=== PATIENT | male | born 1935 | race Caucasian/White ===

== ENCOUNTER 2021-04-05 16:58 | Inpatient (IN) ==
[2021-04-05] MEDS: Furosemide 20 MG TABLET PO SCH (22:51)
[2021-04-05] MEDS: carvediloL 6.25 MG TABLET PO SCH (22:51)
[2021-04-05] MEDS: Spironolactone 25 MG TABLET PO SCH (22:51)
[2021-04-06] MEDS: Spironolactone 25 MG TABLET PO SCH ×2 (07:56→20:20)
[2021-04-06] MEDS: carvediloL 6.25 MG TABLET PO SCH ×2 (07:56→16:10)
[2021-04-06] MEDS: Furosemide 20 MG TABLET PO SCH ×2 (07:56→16:10)
[2021-04-06] MEDS: allopurinoL 300 MG TABLET PO SCH (08:01)
[2021-04-06] MEDS ORDERED: Aspirin Enteric Coated 81 MG Tablet PO SCH (09:00)
[2021-04-06] MEDS: *HR* HYDROcodone/Acet 5/325 mg TABLET PO PRN ×3 (09:18→22:15)
[2021-04-06] MEDS ORDERED: polyethylene glycoL 3350 17 GM POWD.PACK PO PRN (16:09)
[2021-04-07] MEDS: carvediloL 6.25 MG TABLET PO SCH ×2 (07:21→16:19)
[2021-04-07] MEDS: Furosemide 20 MG TABLET PO SCH ×2 (07:21→16:19)
[2021-04-07] MEDS: Spironolactone 25 MG TABLET PO SCH ×2 (07:22→20:22)
[2021-04-07] MEDS: allopurinoL 300 MG TABLET PO SCH (07:22)
[2021-04-07] MEDS: *HR* HYDROcodone/Acet 5/325 mg TABLET PO PRN (07:22)
[2021-04-07] MEDS: Aspirin Enteric Coated 325 MG Tablet PO SCH (11:06)
[2021-04-08 06:43] VITALS: TEMP 97.7
[2021-04-08 07:37] LABS: Basophils % 0.1 %; Eosinophils # 0.2 K/mcL (0.0-0.6); Eosinophils % 1.4 %; Hematocrit 29.7 % (37.5-50.1); Hemoglobin 9.8 g/dL (12.9-16.9); Immature Granulocytes % 0.7 % (0-4); Lymphocytes # 1.5 K/mcL (0.6-4.6); Mean Corpuscular Hemoglobin 32.3 pg (28.0-33.3); Mean Platelet Volume 10.9 fL (9.4-12.4); Monocytes % 7.1 %; Neutrophils # 11.1 K/mcL (1.6-8.9); Platelet Count 306 K/mcL (140-400); Red Blood Count 3.03 M/mcL (4.19-5.50); Red Cell Distribution Width 13.6 % (11.5-14.5); Segmented Neutrophils % 79.7 %; White Blood Count 13.9 K/mcL (4.3-11.1)
[2021-04-08 07:50] LABS: Calcium 8.4 mg/dL (8.6-10.3); Potassium 4.2 mEq/L (3.5-5.1)
[2021-04-08] MEDS: Furosemide 20 MG TABLET PO SCH (10:44)
[2021-04-08] MEDS: allopurinoL 300 MG TABLET PO SCH (10:44)
[2021-04-08] MEDS: carvediloL 6.25 MG TABLET PO SCH (10:45)
[2021-04-08] MEDS: Aspirin Enteric Coated 325 MG Tablet PO SCH (10:45)
[2021-04-08] MEDS: Spironolactone 25 MG TABLET PO SCH (10:45)
[2021-04-08 10:59] LABS: Bilirubin,Urine Negative (Negative); Blood,Urine Moderate (Negative); Clarity,Urine Clear (Clear); Color,Urine Yellow (Yellow); Glucose,Urine (UA) Normal (Normal); Ketones,Urine Negative (Negative); Leukocyte Esterase,Urine Negative (Negative); Nitrite,Urine Negative (Negative); PH,Urine 5.5 pH Units (5.0-8.0); Protein,Urine Negative (Neg-Trace); Specific Gravity,Urine 1.015 (1.010-1.025); Urobilinogen,Urine Normal (Normal)
[2021-04-08 11:25] LABS: Amorphous Sediment,Urine Few per hpf (None-Few); Hyaline Casts,Urine Few per lpf (None Seen)
[2021-04-08] MEDS ORDERED: 0.9 % Sodium Chloride 1,000 ML IVC SCH (13:30)
[2021-04-08] MEDS ORDERED: 0.9 % Sodium Chloride 500 ML IVC ONE (14:39)
[2021-04-08] MEDS ORDERED: Albumin 25% 25gram/100mL 25 GM/100 ML IV.SOLN IVPB ONE (15:52)
[2021-04-08 16:22] VITALS: BP 125/68; PULSE 95; RESP 20; O2SAT 95
[2021-04-11] MEDS ORDERED: allopurinoL 100 MG TABLET PO SCH (09:00)
== END 2021-04-08 17:00 | disposition short-term general hospital (02) | DRG 64 ==
LOC: INPPIK 22:28
PROVIDERS: ADMIT Family Medicine; ATTEND Family Medicine

== ENCOUNTER 2021-04-12 17:16 | Inpatient (IN) ==
[2021-04-12] MEDS ORDERED: *HR* HYDROcodone/Acet 5/325 mg TABLET PO PRN (17:32)
[2021-04-12] MEDS: carvediloL 6.25 MG TABLET PO SCH (22:24)
[2021-04-12] MEDS: Cefdinir 300 MG CAPSULE PO SCH (22:24)
[2021-04-12] MEDS: Spironolactone 25 MG TABLET PO SCH (22:24)
[2021-04-12] MEDS: Furosemide 40 MG TABLET PO SCH (22:24)
[2021-04-13] MEDS: *HR* Enoxaparin 40 MG/0.4 ML SYRINGE SQ SCH (06:19)
[2021-04-13 07:19] LABS: Basophils % 0.3 %; Eosinophils # 0.3 K/mcL (0.0-0.6); Eosinophils % 2.5 %; Hematocrit 32.4 % (37.5-50.1); Hemoglobin 10.6 g/dL (12.9-16.9); Immature Granulocytes % 0.8 % (0-4); Lymphocytes # 1.7 K/mcL (0.6-4.6); Lymphocytes % 15.3 %; Mean Corpuscular HGB Conc 32.7 g/dL (31.6-35.5); Mean Corpuscular Hemoglobin 31.7 pg (28.0-33.3); Mean Platelet Volume 10.6 fL (9.4-12.4); Monocytes # 0.9 K/mcL (0.0-1.3); Monocytes % 7.9 %; Neutrophils # 8.1 K/mcL (1.6-8.9); Platelet Count 411 K/mcL (140-400); Red Blood Count 3.34 M/mcL (4.19-5.50); Red Cell Distribution Width 13.7 % (11.5-14.5); Segmented Neutrophils % 73.2 %; White Blood Count 11.1 K/mcL (4.3-11.1)
[2021-04-13 07:40] LABS: Calcium 8.4 mg/dL (8.6-10.3); Potassium 3.4 mEq/L (3.5-5.1)
[2021-04-13] MEDS: Aspirin Enteric Coated 81 MG Tablet PO SCH (09:00)
[2021-04-13] MEDS: Furosemide 40 MG TABLET PO SCH ×2 (09:00→16:26)
[2021-04-13] MEDS: allopurinoL 300 MG TABLET PO SCH (09:00)
[2021-04-13] MEDS: carvediloL 6.25 MG TABLET PO SCH ×2 (09:00→16:26)
[2021-04-13] MEDS: Cefdinir 300 MG CAPSULE PO SCH ×2 (09:00→21:12)
[2021-04-13] MEDS: Spironolactone 25 MG TABLET PO SCH ×2 (09:00→21:12)
[2021-04-14] MEDS: *HR* Enoxaparin 40 MG/0.4 ML SYRINGE SQ SCH (05:00)
[2021-04-14] MEDS: carvediloL 6.25 MG TABLET PO SCH ×2 (07:42→17:06)
[2021-04-14] MEDS: Furosemide 40 MG TABLET PO SCH (07:42)
[2021-04-14] MEDS: Cefdinir 300 MG CAPSULE PO SCH (07:51)
[2021-04-14] MEDS: allopurinoL 300 MG TABLET PO SCH (07:51)
[2021-04-14] MEDS: Spironolactone 25 MG TABLET PO SCH ×2 (07:51→19:39)
[2021-04-14] MEDS: Aspirin Enteric Coated 81 MG Tablet PO SCH (07:51)
[2021-04-14 08:42] LABS: Basophils % 0.2 %; Eosinophils # 0.1 K/mcL (0.0-0.6); Eosinophils % 0.6 %; Hematocrit 33.7 % (37.5-50.1); Immature Granulocytes % 1.2 % (0-4); Lymphocytes # 1.9 K/mcL (0.6-4.6); Lymphocytes % 10.1 %; Mean Corpuscular HGB Conc 32.6 g/dL (31.6-35.5); Mean Platelet Volume 10.3 fL (9.4-12.4); Monocytes # 1.3 K/mcL (0.0-1.3); Monocytes % 6.8 %; Platelet Count 455 K/mcL (140-400); Red Blood Count 3.44 M/mcL (4.19-5.50); Red Cell Distribution Width 13.7 % (11.5-14.5); Segmented Neutrophils % 81.1 %; White Blood Count 18.6 K/mcL (4.3-11.1)
[2021-04-14 08:43] LABS: Neutrophils # 15.1 K/mcL (1.6-8.9)
[2021-04-14 09:24] LABS: Albumin 3.3 g/dL (3.5-5.7); Albumin/Globulin Ratio 0.8 (1.1-2.2); Bilirubin,Total 0.8 mg/dL (0.3-1.0); Calcium 8.5 mg/dL (8.6-10.3); Potassium 3.5 mEq/L (3.5-5.1); Total Protein 7.3 g/dL (6.4-8.9)
[2021-04-14 10:52] LABS: Bilirubin,Urine Negative (Negative); Blood,Urine Small (Negative); Clarity,Urine Clear (Clear); Color,Urine Yellow (Yellow); Glucose,Urine (UA) Normal (Normal); Ketones,Urine Negative (Negative); Leukocyte Esterase,Urine Trace (Negative); Nitrite,Urine Negative (Negative); Protein,Urine Negative (Neg-Trace); Urobilinogen,Urine Normal (Normal)
[2021-04-14 11:03] LABS: Bacteria,Urine Moderate per hpf (None-Few); RBC,Urine 0-3 per hpf (0-3)
[2021-04-14 11:04] LABS: Mucus,Urine Few per lpf (None-Few)
[2021-04-14] MEDS: 0.9 % Sodium Chloride 1,000 ML IVC SCH ×2 (14:01→23:10)
[2021-04-14] MEDS: *HR* Heparin 5,000 UNIT/ML VIAL SQ SCH (21:18)
[2021-04-15] MEDS: *HR* Heparin 5,000 UNIT/ML VIAL SQ SCH ×3 (06:14→20:18)
[2021-04-15] MEDS: allopurinoL 300 MG TABLET PO SCH (07:32)
[2021-04-15] MEDS: carvediloL 6.25 MG TABLET PO SCH ×2 (07:33→16:59)
[2021-04-15] MEDS: Spironolactone 25 MG TABLET PO SCH (07:33)
[2021-04-15] MEDS: Aspirin Enteric Coated 81 MG Tablet PO SCH (07:33)
[2021-04-15] MEDS: cefTRIAXone 2,000 MG in 0.9 % Sodium Chloride Mini Bag 100 ML IVPB SCH (08:21)
[2021-04-15 08:23] LABS: Basophils # 0.1 K/mcL (0.0-0.2); Basophils % 0.5 %; Eosinophils # 0.2 K/mcL (0.0-0.6); Hematocrit 30.1 % (37.5-50.1); Hemoglobin 9.9 g/dL (12.9-16.9); Immature Granulocytes % 0.7 % (0-4); Lymphocytes # 1.9 K/mcL (0.6-4.6); Lymphocytes % 17.1 %; Mean Corpuscular HGB Conc 32.9 g/dL (31.6-35.5); Mean Corpuscular Hemoglobin 32.1 pg (28.0-33.3); Mean Corpuscular Volume 97.7 fL (83.0-100.0); Mean Platelet Volume 10.6 fL (9.4-12.4); Monocytes # 0.7 K/mcL (0.0-1.3); Monocytes % 6.7 %; Platelet Count 415 K/mcL (140-400); Red Blood Count 3.08 M/mcL (4.19-5.50); Red Cell Distribution Width 13.8 % (11.5-14.5); White Blood Count 10.9 K/mcL (4.3-11.1)
[2021-04-15 08:39] LABS: Calcium 8.2 mg/dL (8.6-10.3); Magnesium 1.3 mg/dL (1.6-2.6); Phosphorous 3.1 mg/dL (2.7-4.5); Potassium 3.6 mEq/L (3.5-5.1)
[2021-04-15] MEDS ORDERED: Cefdinir 300 MG CAPSULE PO SCH (09:00)
[2021-04-15] MEDS: 0.9 % Sodium Chloride 1,000 ML IVC SCH (09:19)
[2021-04-16] MEDS: *HR* Heparin 5,000 UNIT/ML VIAL SQ SCH ×3 (05:30→20:09)
[2021-04-16 08:56] LABS: Basophils % 0.4 %; Eosinophils # 0.3 K/mcL (0.0-0.6); Eosinophils % 2.5 %; Hematocrit 31.8 % (37.5-50.1); Hemoglobin 10.5 g/dL (12.9-16.9); Immature Granulocytes % 0.6 % (0-4); Lymphocytes # 1.6 K/mcL (0.6-4.6); Lymphocytes % 16.3 %; Mean Corpuscular Hemoglobin 32.4 pg (28.0-33.3); Mean Corpuscular Volume 98.1 fL (83.0-100.0); Mean Platelet Volume 9.8 fL (9.4-12.4); Monocytes # 0.6 K/mcL (0.0-1.3); Monocytes % 5.6 %; Neutrophils # 7.5 K/mcL (1.6-8.9); Platelet Count 436 K/mcL (140-400); Red Blood Count 3.24 M/mcL (4.19-5.50); Red Cell Distribution Width 13.6 % (11.5-14.5); Segmented Neutrophils % 74.6 %; White Blood Count 10.1 K/mcL (4.3-11.1)
[2021-04-16] MEDS ORDERED: CefTRIAXone 2,000 MG VIAL ONE (09:01)
[2021-04-16] MEDS: carvediloL 6.25 MG TABLET PO SCH ×2 (09:04→16:16)
[2021-04-16] MEDS: allopurinoL 300 MG TABLET PO SCH (09:04)
[2021-04-16] MEDS: Aspirin Enteric Coated 81 MG Tablet PO SCH (09:05)
[2021-04-16] MEDS: cefTRIAXone 2,000 MG in 0.9 % Sodium Chloride Mini Bag 100 ML IVPB SCH (09:05)
[2021-04-16 09:11] LABS: Calcium 8.7 mg/dL (8.6-10.3); Potassium 3.5 mEq/L (3.5-5.1)
[2021-04-16 13:08] LABS: Basophils % 0.3 %; Eosinophils # 0.2 K/mcL (0.0-0.6); Eosinophils % 2.3 %; Hematocrit 31.8 % (37.5-50.1); Hemoglobin 10.4 g/dL (12.9-16.9); Immature Granulocytes % 0.5 % (0-4); Lymphocytes # 1.2 K/mcL (0.6-4.6); Lymphocytes % 11.9 %; Mean Corpuscular HGB Conc 32.7 g/dL (31.6-35.5); Mean Corpuscular Hemoglobin 32.3 pg (28.0-33.3); Mean Corpuscular Volume 98.8 fL (83.0-100.0); Mean Platelet Volume 9.8 fL (9.4-12.4); Monocytes # 0.8 K/mcL (0.0-1.3); Monocytes % 8.3 %; Neutrophils # 7.6 K/mcL (1.6-8.9); Platelet Count 405 K/mcL (140-400); Red Blood Count 3.22 M/mcL (4.19-5.50); Red Cell Distribution Width 13.7 % (11.5-14.5); Segmented Neutrophils % 76.7 %
[2021-04-16 13:29] LABS: Calcium 8.6 mg/dL (8.6-10.3)
[2021-04-17] MEDS: *HR* Heparin 5,000 UNIT/ML VIAL SQ SCH ×2 (06:42→15:58)
[2021-04-17 08:33] LABS: Basophils % 0.3 %; Eosinophils # 0.2 K/mcL (0.0-0.6); Eosinophils % 2.9 %; Hematocrit 32.4 % (37.5-50.1); Hemoglobin 10.5 g/dL (12.9-16.9); Immature Granulocytes % 0.5 % (0-4); Lymphocytes # 1.4 K/mcL (0.6-4.6); Lymphocytes % 18.5 %; Mean Corpuscular HGB Conc 32.4 g/dL (31.6-35.5); Mean Corpuscular Hemoglobin 31.8 pg (28.0-33.3); Mean Corpuscular Volume 98.2 fL (83.0-100.0); Mean Platelet Volume 10.3 fL (9.4-12.4); Monocytes # 0.7 K/mcL (0.0-1.3); Monocytes % 9.1 %; Neutrophils # 5.2 K/mcL (1.6-8.9); Platelet Count 397 K/mcL (140-400); Red Cell Distribution Width 13.4 % (11.5-14.5); Segmented Neutrophils % 68.7 %; White Blood Count 7.6 K/mcL (4.3-11.1)
[2021-04-17] MEDS: allopurinoL 300 MG TABLET PO SCH (08:43)
[2021-04-17] MEDS: Aspirin Enteric Coated 81 MG Tablet PO SCH (08:43)
[2021-04-17] MEDS: carvediloL 6.25 MG TABLET PO SCH ×2 (08:44→21:56)
[2021-04-17] MEDS: Magnesium Oxide 400 MG TABLET PO SCH (08:44)
[2021-04-17] MEDS: cefTRIAXone 2,000 MG in 0.9 % Sodium Chloride Mini Bag 100 ML IVPB SCH (08:46)
[2021-04-17 08:56] LABS: Magnesium 1.6 mg/dL (1.6-2.6)
[2021-04-17] MEDS: Cefdinir 300 MG CAPSULE PO SCH (21:55)
[2021-04-18] MEDS: Cefdinir 300 MG CAPSULE PO SCH ×2 (10:05→18:31)
[2021-04-18] MEDS: Lactobacillus 1 EACH CAP.SPRINK PO SCH (10:06)
[2021-04-18] MEDS: Magnesium Oxide 400 MG TABLET PO SCH (10:06)
[2021-04-18] MEDS: Aspirin Enteric Coated 81 MG Tablet PO SCH (10:07)
[2021-04-18] MEDS: allopurinoL 300 MG TABLET PO SCH (10:08)
[2021-04-18] MEDS: carvediloL 6.25 MG TABLET PO SCH ×2 (10:09→16:55)
[2021-04-18] MEDS: Furosemide 40 MG TABLET PO SCH (10:09)
[2021-04-19 07:51] LABS: Calcium 9.1 mg/dL (8.6-10.3); Potassium 4.2 mEq/L (3.5-5.1)
[2021-04-19] MEDS: Furosemide 40 MG TABLET PO SCH (09:18)
[2021-04-19] MEDS: allopurinoL 300 MG TABLET PO SCH (09:19)
[2021-04-19] MEDS: Aspirin Enteric Coated 81 MG Tablet PO SCH (09:19)
[2021-04-19] MEDS: Magnesium Oxide 400 MG TABLET PO SCH (09:20)
[2021-04-19] MEDS: Cefdinir 300 MG CAPSULE PO SCH (09:21)
[2021-04-19] MEDS: Lactobacillus 1 EACH CAP.SPRINK PO SCH (09:21)
[2021-04-19] MEDS: carvediloL 6.25 MG TABLET PO SCH ×2 (09:22→17:36)
[2021-04-20] MEDS: carvediloL 6.25 MG TABLET PO SCH ×2 (09:07→16:52)
[2021-04-20] MEDS: allopurinoL 300 MG TABLET PO SCH (09:10)
[2021-04-20] MEDS: Furosemide 40 MG TABLET PO SCH (09:11)
[2021-04-20] MEDS: Magnesium Oxide 400 MG TABLET PO SCH (09:11)
[2021-04-20] MEDS: Cefdinir 300 MG CAPSULE PO SCH ×2 (09:12→09:16)
[2021-04-20] MEDS: Lactobacillus 1 EACH CAP.SPRINK PO SCH (09:14)
[2021-04-21] MEDS: carvediloL 6.25 MG TABLET PO SCH ×2 (08:38→17:25)
[2021-04-21] MEDS: Cefdinir 300 MG CAPSULE PO SCH (08:38)
[2021-04-21] MEDS: Furosemide 40 MG TABLET PO SCH (08:38)
[2021-04-21] MEDS: Lactobacillus 1 EACH CAP.SPRINK PO SCH (08:38)
[2021-04-21] MEDS: Magnesium Oxide 400 MG TABLET PO SCH (08:38)
[2021-04-21] MEDS: allopurinoL 300 MG TABLET PO SCH (08:38)
[2021-04-21] MEDS ORDERED: 0.9 % Sodium Chloride 250 ML IVC ONE ×2 (18:38→20:16)
[2021-04-22] MEDS: Cefdinir 300 MG CAPSULE PO SCH (08:05)
[2021-04-22] MEDS: allopurinoL 300 MG TABLET PO SCH (08:05)
[2021-04-22] MEDS: Lactobacillus 1 EACH CAP.SPRINK PO SCH (08:05)
[2021-04-22] MEDS: Magnesium Oxide 400 MG TABLET PO SCH (08:05)
[2021-04-22] MEDS: Furosemide 40 MG TABLET PO SCH (08:06)
[2021-04-22] MEDS: carvediloL 6.25 MG TABLET PO SCH (16:01)
[2021-04-23] MEDS ORDERED: Furosemide 20 MG TABLET PO SCH (09:00)
[2021-04-23] MEDS: Magnesium Oxide 400 MG TABLET PO SCH (09:40)
[2021-04-23] MEDS: carvediloL 6.25 MG TABLET PO SCH ×2 (09:40→15:45)
[2021-04-23] MEDS: Cefdinir 300 MG CAPSULE PO SCH (09:40)
[2021-04-23] MEDS: Lactobacillus 1 EACH CAP.SPRINK PO SCH (09:40)
[2021-04-23] MEDS: allopurinoL 300 MG TABLET PO SCH (09:40)
[2021-04-23 15:13] LABS: Basophils % 0.5 %; Eosinophils # 0.3 K/mcL (0.0-0.6); Eosinophils % 3.4 %; Hemoglobin 11.2 g/dL (12.9-16.9); Immature Granulocytes % 0.6 % (0-4); Lymphocytes # 1.7 K/mcL (0.6-4.6); Lymphocytes % 20.6 %; Mean Corpuscular HGB Conc 32.9 g/dL (31.6-35.5); Mean Corpuscular Hemoglobin 32.3 pg (28.0-33.3); Mean Platelet Volume 9.7 fL (9.4-12.4); Monocytes # 0.8 K/mcL (0.0-1.3); Monocytes % 9.4 %; Neutrophils # 5.3 K/mcL (1.6-8.9); Platelet Count 339 K/mcL (140-400); Red Blood Count 3.47 M/mcL (4.19-5.50); Red Cell Distribution Width 13.4 % (11.5-14.5); Segmented Neutrophils % 65.5 %
[2021-04-23 15:31] LABS: Potassium 4.9 mEq/L (3.5-5.1)
[2021-04-23] MEDS: 0.9 % Sodium Chloride 1,000 ML IVC SCH ×2 (16:11→20:50)
[2021-04-23] MEDS ORDERED: Ringers Solution, Lactated 1,000 ML IVC ONE (19:11)
[2021-04-24] MEDS: 0.9 % Sodium Chloride 1,000 ML IVC SCH ×2 (05:26→16:58)
[2021-04-24 07:00] VITALS: RESP 18
[2021-04-24] MEDS: Cefdinir 300 MG CAPSULE PO SCH (08:11)
[2021-04-24] MEDS: Magnesium Oxide 400 MG TABLET PO SCH (08:11)
[2021-04-24] MEDS: allopurinoL 300 MG TABLET PO SCH (08:11)
[2021-04-24 08:12] LABS: Calcium 8.7 mg/dL (8.6-10.3); Potassium 4.5 mEq/L (3.5-5.1)
[2021-04-24] MEDS: Lactobacillus 1 EACH CAP.SPRINK PO SCH (08:12)
[2021-04-24 19:20] VITALS: BP 132/57; PULSE 82; TEMP 97.4; O2SAT 97
[2021-04-25] MEDS: 0.9 % Sodium Chloride 1,000 ML IVC SCH (00:31)
[2021-04-25] MEDS: Lactobacillus 1 EACH CAP.SPRINK PO SCH (10:17)
[2021-04-25] MEDS: Magnesium Oxide 400 MG TABLET PO SCH (10:18)
[2021-04-25] MEDS: allopurinoL 300 MG TABLET PO SCH (10:18)
== END 2021-04-25 19:08 | disposition short-term general hospital (02) | DRG 689 ==
LOC: INPPIK 21:09
PROVIDERS: ADMIT Internal Medicine; ATTEND Internal Medicine

== ENCOUNTER 2021-04-29 15:23 | Inpatient (IN) ==
[2021-04-30] MEDS ORDERED: *HR* HYDROcodone/Acet 5/325 mg TABLET PO PRN (16:36)
[2021-04-30] MEDS: *HR* Heparin 5,000 UNIT/ML VIAL SQ SCH (22:56)
[2021-04-30] MEDS: carvediloL 6.25 MG TABLET PO SCH (23:13)
[2021-05-01] MEDS: *HR* Heparin 5,000 UNIT/ML VIAL SQ SCH ×2 (05:01→17:51)
[2021-05-01 08:23] LABS: White Blood Count 8.4 K/mcL (4.3-11.1)
[2021-05-01 08:24] LABS: Basophils # 0.1 K/mcL (0.0-0.2); Basophils % 0.7 %; Eosinophils # 0.3 K/mcL (0.0-0.6); Eosinophils % 3.8 %; Hemoglobin 10.1 g/dL (12.9-16.9); Immature Granulocytes % 0.6 % (0-4); Lymphocytes # 1.9 K/mcL (0.6-4.6); Mean Corpuscular HGB Conc 32.6 g/dL (31.6-35.5); Mean Corpuscular Hemoglobin 32.3 pg (28.0-33.3); Mean Platelet Volume 10.7 fL (9.4-12.4); Monocytes # 0.7 K/mcL (0.0-1.3); Monocytes % 7.8 %; Neutrophils # 5.4 K/mcL (1.6-8.9); Platelet Count 239 K/mcL (140-400); Red Blood Count 3.13 M/mcL (4.19-5.50); Red Cell Distribution Width 14.4 % (11.5-14.5); Segmented Neutrophils % 64.1 %
[2021-05-01 08:44] LABS: Calcium 8.8 mg/dL (8.6-10.3); Potassium 4.5 mEq/L (3.5-5.1)
[2021-05-01] MEDS: Aspirin Enteric Coated 81 MG Tablet PO SCH (09:04)
[2021-05-01] MEDS: Magnesium Oxide 400 MG TABLET PO SCH (09:04)
[2021-05-01] MEDS: carvediloL 6.25 MG TABLET PO SCH ×2 (09:04→17:51)
[2021-05-01] MEDS: allopurinoL 300 MG TABLET PO SCH (09:04)
[2021-05-02] MEDS: *HR* Heparin 5,000 UNIT/ML VIAL SQ SCH ×2 (05:51→17:28)
[2021-05-02] MEDS: Magnesium Oxide 400 MG TABLET PO SCH (08:27)
[2021-05-02] MEDS: Aspirin Enteric Coated 81 MG Tablet PO SCH (08:27)
[2021-05-02] MEDS: carvediloL 6.25 MG TABLET PO SCH ×2 (08:27→17:26)
[2021-05-02] MEDS: allopurinoL 300 MG TABLET PO SCH (08:28)
[2021-05-03] MEDS: *HR* Heparin 5,000 UNIT/ML VIAL SQ SCH ×2 (05:58→16:17)
[2021-05-03 07:13] LABS: Basophils % 0.5 %; Eosinophils # 0.3 K/mcL (0.0-0.6); Eosinophils % 3.6 %; Hematocrit 30.6 % (37.5-50.1); Hemoglobin 9.9 g/dL (12.9-16.9); Immature Granulocytes % 0.8 % (0-4); Lymphocytes # 1.8 K/mcL (0.6-4.6); Lymphocytes % 22.5 %; Mean Corpuscular HGB Conc 32.4 g/dL (31.6-35.5); Mean Corpuscular Hemoglobin 32.4 pg (28.0-33.3); Mean Platelet Volume 10.3 fL (9.4-12.4); Monocytes # 0.7 K/mcL (0.0-1.3); Monocytes % 9.2 %; Platelet Count 208 K/mcL (140-400); Red Blood Count 3.06 M/mcL (4.19-5.50); Red Cell Distribution Width 14.6 % (11.5-14.5); Segmented Neutrophils % 63.4 %; White Blood Count 7.8 K/mcL (4.3-11.1)
[2021-05-03 08:08] LABS: Calcium 8.5 mg/dL (8.6-10.3); Potassium 4.2 mEq/L (3.5-5.1)
[2021-05-03] MEDS: Aspirin Enteric Coated 81 MG Tablet PO SCH (08:15)
[2021-05-03] MEDS: allopurinoL 300 MG TABLET PO SCH (08:15)
[2021-05-03] MEDS: carvediloL 6.25 MG TABLET PO SCH ×2 (08:15→16:17)
[2021-05-03] MEDS: Magnesium Oxide 400 MG TABLET PO SCH (08:15)
[2021-05-04] MEDS: *HR* Heparin 5,000 UNIT/ML VIAL SQ SCH ×2 (05:28→16:18)
[2021-05-04] MEDS: carvediloL 6.25 MG TABLET PO SCH ×2 (08:23→16:17)
[2021-05-04] MEDS: Magnesium Oxide 400 MG TABLET PO SCH (08:24)
[2021-05-04] MEDS: Aspirin Enteric Coated 81 MG Tablet PO SCH (08:24)
[2021-05-04] MEDS: allopurinoL 300 MG TABLET PO SCH (08:24)
[2021-05-05] MEDS: *HR* Heparin 5,000 UNIT/ML VIAL SQ SCH ×2 (06:39→16:37)
[2021-05-05] MEDS: Magnesium Oxide 400 MG TABLET PO SCH (09:18)
[2021-05-05] MEDS: carvediloL 6.25 MG TABLET PO SCH ×2 (09:18→16:34)
[2021-05-05] MEDS: Aspirin Enteric Coated 81 MG Tablet PO SCH (09:19)
[2021-05-05] MEDS: allopurinoL 300 MG TABLET PO SCH (09:19)
[2021-05-06] MEDS: *HR* Heparin 5,000 UNIT/ML VIAL SQ SCH ×2 (06:16→16:34)
[2021-05-06 06:46] LABS: Basophils % 0.4 %; Eosinophils # 0.3 K/mcL (0.0-0.6); Eosinophils % 2.5 %; Hematocrit 30.8 % (37.5-50.1); Hemoglobin 9.9 g/dL (12.9-16.9); Immature Granulocytes % 0.4 % (0-4); Lymphocytes % 18.2 %; Mean Corpuscular HGB Conc 32.1 g/dL (31.6-35.5); Mean Corpuscular Hemoglobin 31.9 pg (28.0-33.3); Mean Corpuscular Volume 99.4 fL (83.0-100.0); Mean Platelet Volume 10.6 fL (9.4-12.4); Monocytes # 0.9 K/mcL (0.0-1.3); Monocytes % 8.1 %; Neutrophils # 7.7 K/mcL (1.6-8.9); Platelet Count 209 K/mcL (140-400); Red Cell Distribution Width 14.7 % (11.5-14.5); Segmented Neutrophils % 70.4 %
[2021-05-06 07:01] LABS: BUN/Creatinine Ratio 20 (6-26); Blood Urea Nitrogen 26 mg/dL (8-23); Calcium 8.7 mg/dL (8.6-10.3); Carbon Dioxide 28 mEq/L (23-29); Chloride 105 mEq/L (98-107); Glucose 104 mg/dL (70-105); Osmolality,Calculated 293 (280-300); Potassium 4.1 mEq/L (3.5-5.1); Sodium 139 mEq/L (136-145); eGFR For African Americans > 60 (> 60); eGFR For Non-African Americans 52 (> 60)
[2021-05-06] MEDS: allopurinoL 300 MG TABLET PO SCH (09:33)
[2021-05-06] MEDS: carvediloL 6.25 MG TABLET PO SCH ×2 (09:33→16:33)
[2021-05-06] MEDS: Magnesium Oxide 400 MG TABLET PO SCH (09:33)
[2021-05-06] MEDS: Aspirin Enteric Coated 81 MG Tablet PO SCH (09:33)
[2021-05-06 19:09] VITALS: O2SAT 96
[2021-05-07] MEDS: *HR* Heparin 5,000 UNIT/ML VIAL SQ SCH (05:32)
[2021-05-07 07:55] VITALS: BP 170/79; PULSE 82; RESP 19; TEMP 98.2
[2021-05-07] MEDS: Aspirin Enteric Coated 81 MG Tablet PO SCH (11:19)
[2021-05-07] MEDS: carvediloL 6.25 MG TABLET PO SCH (11:19)
[2021-05-07] MEDS: allopurinoL 300 MG TABLET PO SCH (11:20)
[2021-05-07] MEDS: Magnesium Oxide 400 MG TABLET PO SCH (11:20)
[2021-05-07 14:10] LABS: Bilirubin,Urine Negative (Negative); Blood,Urine Large (Negative); Clarity,Urine Cloudy (Clear); Glucose,Urine (UA) Normal (Normal); Ketones,Urine Trace mg/dL (Negative); Leukocyte Esterase,Urine Large (Negative); Nitrite,Urine Positive (Negative); PH,Urine 5.5 pH Units (5.0-8.0); Protein,Urine >=300 mg/dL (Neg-Trace); Specific Gravity,Urine >= 1.030 (1.010-1.025); Urobilinogen,Urine Normal (Normal)
[2021-05-07 14:14] LABS: Color,Urine Dark Yellow (Yellow)
[2021-05-07 14:19] LABS: Bacteria,Urine Many per hpf (None-Few); RBC,Urine TNTC per hpf (0-3); Squamous Epithelial Cell,Urine Present per hpf (None-Few); WBC,Urine TNTC per hpf (0-3)
== END 2021-05-07 15:02 | disposition home health service (06) | DRG 725 ==
LOC: INPPIK 04-30 22:03
PROVIDERS: ADMIT Family Medicine; ATTEND Family Medicine